=== PATIENT | male | born 1945 ===

== ENCOUNTER 2019-08-27 17:50 | Emergency (ER) | payer MEDICARE ==
[~2019-08-27] VITALS: Ht 180.3 cm; Wt 114.8 kg
== END 2019-08-27 18:22 | disposition home or self-care (01) ==
LOC: ER 17:50
DX: I83.893 Varicose veins of bilateral lower extremities with other complications (principal); Z88.0 Allergy status to penicillin
CPT/HCPCS: 99282

== ENCOUNTER 2020-12-23 08:25 | Day surgery (SDC) | payer MEDICARE, OTHER ==
[~2020-12-23] VITALS: Ht 180.3 cm; Wt 108.5 kg
[~2020-12-23 08:25] MED LIST: Aspir 8181 MG PO; FLONASE ALLERG9.9 M2; GLIP5 PO; LEVOTHYROXINE200 MCG PO; LOSARTAN POTASS50 M1 PO; METF500 PO
[2020-12-23] MEDS ORDERED: SIMV80 (08:43)
--- NOTE | 2020-12-23 10:42 | NUR ---
12/23/20 1042 Tanja Wynn LATE ENTRY---IT WAS ENTERED IN THE MEDS/FLUIDS SCREEN THAT THE IV WAS IN THE RIGHT HAND WHICH WAS INCORRECT---THE IV WAS IN THE RIGHT FOREARM
== END 2020-12-23 10:30 | disposition home or self-care (01) ==
LOC: ORSCSDS 08:25
PROVIDERS: Internal Medicine Gastroenterology
PROC: 0DBL8ZX Excision of Transverse Colon, Via Natural or Artificial Opening Endoscopic, Diagnostic (ICD-10-PCS; principal; 2020-12-23 09:45)
DX: Z12.11 Encounter for screening for malignant neoplasm of colon (principal); Z86.010 Personal history of colon polyps; D12.3 Benign neoplasm of transverse colon; K57.30 Diverticulosis of large intestine without perforation or abscess without bleeding; K64.8 Other hemorrhoids; E11.9 Type 2 diabetes mellitus without complications; E03.9 Hypothyroidism, unspecified; I10 Essential (primary) hypertension; E78.5 Hyperlipidemia, unspecified; J45.909 Unspecified asthma, uncomplicated; G47.33 Obstructive sleep apnea (adult) (pediatric); Z79.82 Long term (current) use of aspirin; Z79.899 Other long term (current) drug therapy
CPT/HCPCS: 82947; 88305; J2704; J7120

== ENCOUNTER → 2024-03-15 | Outpatient (CLI) | payer MEDICARE, OTHER ==
[~2024-03-15] MED LIST changes: +ZOCOR PO
[2024-03-15 15:06] LABS: BASOPHILS ABSOLUTE AUTO 0.06 K/mm3 (0.00-0.23); BASOPHILS PERCENT AUTO 1 % (0-2); EOSINOPHILS PERCENT AUTO 5 % (0-6); Hematocrit 38.8 % (37.0-53.0); Hemoglobin 13.7 g/dL (13.5-17.5); IMMATURE GRAN ABSOLUTE AUTO 0.03 K/mm3 (0.00-0.10); IMMATURE GRAN PERCENT AUTO 0 % (0-1); LYMPHOCYTES PERCENT AUTO 16 % (21-46); MONOCYTES ABSOLUTE AUTO 0.59 K/mm3 (0.16-1.47); MONOCYTES PERCENT AUTO 7 % (4-13); Mean Corpuscular HGB 29.7 pg (26.0-34.0); Mean Corpuscular HGB Conc 35.3 g/dL (31.5-36.5); Mean Corpuscular Volume 84 fL (80-100); Mean Platelet Volume 9.6 fL (9.1-12.4); NEUTROPHILS ABSOLUTE AUTO 6.19 K/mm3 (1.96-9.15); NEUTROPHILS PERCENT AUTO 72 % (41-73); Platelet Count 257 K/mm3 (150-400); RDW Coefficient Variation 11.9 % (11.7-14.2); Red Blood Cell Count 4.61 M/mm3 (4.30-5.90); White Blood Cell Count 8.67 K/mm3 (4.00-11.30)
[2024-03-15 15:15] LABS: Albumin, Blood 3.8 g/dL (3.4-5.0); Bilirubin, Total 0.8 mg/dL (0.1-1.0); Bun/Creatinine Ratio 12.6 (12.0-20.0); Calcium, Blood 8.6 mg/dL (8.5-10.1); Creatinine, Blood 1.99 mg/dL (0.60-1.20); Globulin, Blood 3.7 g/dL (2.2-4.0); Potassium, Blood 4.4 mmol/L (3.5-5.5); Total Protein, Blood 7.5 g/dL (6.4-8.2)
== END | disposition home or self-care (01) ==
LOC: LAB 15:01 → LAB SHORT 15:01
PROVIDERS: Internal Medicine
DX: I95.9 Hypotension, unspecified (principal)
CPT/HCPCS: 80053; 85025

== ENCOUNTER → 2024-04-25 | Outpatient (CLI) | payer MEDICARE, OTHER ==
[2024-04-25 12:34] LABS: BASOPHILS ABSOLUTE AUTO 0.07 K/mm3 (0.00-0.23); BASOPHILS PERCENT AUTO 1 % (0-2); EOSINOPHILS ABSOLUTE AUTO 0.42 K/mm3 (0.00-0.68); EOSINOPHILS PERCENT AUTO 6 % (0-6); Hematocrit 40.8 % (37.0-53.0); Hemoglobin 14.6 g/dL (13.5-17.5); IMMATURE GRAN ABSOLUTE AUTO 0.03 K/mm3 (0.00-0.10); IMMATURE GRAN PERCENT AUTO 0 % (0-1); LYMPHOCYTES ABSOLUTE AUTO 1.71 K/mm3 (0.84-5.20); LYMPHOCYTES PERCENT AUTO 23 % (21-46); MONOCYTES ABSOLUTE AUTO 0.44 K/mm3 (0.16-1.47); MONOCYTES PERCENT AUTO 6 % (4-13); Mean Corpuscular HGB 29.6 pg (26.0-34.0); Mean Corpuscular HGB Conc 35.8 g/dL (31.5-36.5); Mean Corpuscular Volume 83 fL (80-100); Mean Platelet Volume 9.5 fL (9.1-12.4); NEUTROPHILS ABSOLUTE AUTO 4.84 K/mm3 (1.96-9.15); NEUTROPHILS PERCENT AUTO 64 % (41-73); Platelet Count 251 K/mm3 (150-400); RDW Coefficient Variation 12.1 % (11.7-14.2); RDW Standard Deviation 36.5 fL (35.1-46.3); Red Blood Cell Count 4.93 M/mm3 (4.30-5.90); White Blood Cell Count 7.51 K/mm3 (4.00-11.30)
[2024-04-25 12:48] LABS: Albumin, Blood 3.6 g/dL (3.4-5.0); Albumin/Globulin Ratio 0.9 (0.8-1.8); Bilirubin, Total 0.6 mg/dL (0.1-1.0); Bun/Creatinine Ratio 13.4 (12.0-20.0); Calcium, Blood 9.1 mg/dL (8.5-10.1); Creatinine, Blood 1.57 mg/dL (0.60-1.20); Globulin, Blood 3.9 g/dL (2.2-4.0); Potassium, Blood 4.3 mmol/L (3.5-5.5); Total Protein, Blood 7.5 g/dL (6.4-8.2)
== END | disposition home or self-care (01) ==
LOC: LAB SHORT 12:30 → LAB 12:30
PROVIDERS: Chiropractor
DX: R42 Dizziness and giddiness (principal); R93.1 Abnormal findings on diagnostic imaging of heart and coronary circulation
CPT/HCPCS: 80053; 84484; 85025

== ENCOUNTER 2024-05-22 06:54 | Day surgery (SDC) | payer MEDICARE, OTHER ==
[2024-05-22] VITALS (10 sets, daily range): BP systolic 126–162; BP diastolic 49–126
[~2024-05-22] VITALS: Ht 180.3 cm; Wt 107.0 kg
[2024-05-22] MEDS ORDERED: GABA100 PO (07:54)
[2024-05-22] MEDS ORDERED: Isosorbide Mono30 MG PO (07:54)
[2024-05-22] MEDS ORDERED: METO25ER PO (07:54)
[2024-05-22] MEDS ORDERED: VALS80 PO (07:55)
[2024-05-22] MEDS ORDERED: ZOCOR20 MG PO (07:55)
[2024-05-22] MEDS ORDERED: Heparin Sodium 1000 Units/ML 10ML MDV ONE ×2 (09:54→10:52)
[2024-05-22] MEDS ORDERED: NS 1,000 ML IV ONE ×2 (09:54→09:59)
[2024-05-22] MEDS ORDERED: NS 250 ML IV ONE (09:54)
[2024-05-22] MEDS ORDERED: Verapamil HCL 2.5 MG/ML 2ML Injection ONE (09:54)
[2024-05-22] MEDS ORDERED: Nitroglycerin 2 MG/20 ML BTL ONE (09:54)
[2024-05-22] MEDS ORDERED: Midazolam HCl 1MG / ML 2ML Vial ONE (09:59)
[2024-05-22] MEDS ORDERED: FentaNYL Citrate 50 MCG/ML 2 ML Injection ONE (09:59)
--- NOTE | 2024-05-22 12:32 | NUR ---
2cc removed from tr band. site soft and non-tender per pt. no bleeding noted.
--- NOTE | 2024-05-22 12:43 | NUR ---
2CC REMOVED FROM TR BAND. SITE SOFT AND NON-TENDER PER PT. NO BLEEDING NOTED. PT FINISHED W/ FOOD. PT SITTING UP READING BOOK.
--- NOTE | 2024-05-22 12:52 | NUR ---
2CC REMOVED FROM TR BAND. SITE SOFT AND NON-TENEDER PER PT. NO BLEEDING NOTED.
--- NOTE | 2024-05-22 12:59 | NUR ---
TR BAND FULLY DEFLATED. SITE SOFT AND NON-TENDER PER PT. NO BLEEDING NOTED.
--- NOTE | 2024-05-22 13:17 | NUR ---
RADIAL SITE SOFT AND NON-TENDER PER PT. NO BLEEDING NOTED.
--- NOTE | 2024-05-22 14:06 | NUR ---
PT GIVEN D/C INSTRUCTIONS AND VERBALIZED UNDERSTADNING. IV OUT. RADIAL SITE SOFT AND NON-TENDER PER PT. NO BLEEDING NOTED. CLOTH DOT, ARM BOARD, AND SLING APPLIED. PT CHANGED AND AMBULATED TO [facility]. PT TAKEN TO [facility] VIA . , RASHEL, TO TAKE PT HOME.
== END 2024-05-22 14:10 | disposition home or self-care (01) ==
LOC: MHTC 06:54
DX: I25.10 Atherosclerotic heart disease of native coronary artery without angina pectoris (principal); E78.5 Hyperlipidemia, unspecified; R06.09 Other forms of dyspnea; R53.1 Weakness; R53.83 Other fatigue; R42 Dizziness and giddiness; I12.9 Hypertensive chronic kidney disease with stage 1 through stage 4 chronic kidney disease, or unspecified chronic kidney disease; E11.22 Type 2 diabetes mellitus with diabetic chronic kidney disease; N18.32 Chronic kidney disease, stage 3b; E03.9 Hypothyroidism, unspecified; Z88.0 Allergy status to penicillin; Z79.82 Long term (current) use of aspirin; Z79.899 Other long term (current) drug therapy
CPT/HCPCS: 76937; 85347; 93454; 93571; 99152; 99153; C1769; C1887; C1894; J1644; J2250; J3010; J7030; J7050; Q9967

== ENCOUNTER 2024-08-16 11:46 | Day surgery (SDC) | payer MEDICARE, OTHER ==
[2024-08-16] VITALS (15 sets, daily range): BP systolic 107–158; BP diastolic 59–87
[~2024-08-16] VITALS: Ht 180.3 cm; Wt 103.5 kg
[~2024-08-16 11:46] MED LIST changes: +ATOR40TA PO; +GABA100 PO; +Isosorbide Mono30 MG PO; +METO25ER PO; +NITR.4SL SL; +VALS80 PO; +ZOCOR20 MG PO
[2024-08-16] MEDS ORDERED: Indocyanine Green 25 MG Vial IV ONE (12:40)
[2024-08-16] MEDS ORDERED: Lactated Ringer's 1,000 ML IV SCH (12:40)
[2024-08-16] MEDS ORDERED: propofoL 20 ML IV ONE (12:48)
[2024-08-16] MEDS ORDERED: FentaNYL Citrate 50 MCG/ML 2 ML Injection ONE (12:48)
[2024-08-16] MEDS ORDERED: Ondansetron HCl 2 MG / ML 2ML Vial ONE (12:49)
[2024-08-16] MEDS ORDERED: Rocuronium Bromide 10 MG/ML 5ML Injection IV ONE ×5 (12:49→19:51)
[2024-08-16] MEDS ORDERED: Dexamethasone Sod Phos 10 MG/ML 1ML VIAL ONE (12:49)
--- NOTE | 2024-08-16 13:02 | NUR ---
PT TO DAY SURGERY AMBULATORY. PT REPORTS "FALLING OFF LADDER" 2 [address] A[address] WILL INFORM [address] SANDERS AND DR OWENS. FALL CAUSED BACK PAIN BUT PT IS STILL AMBULATORY. History, Chart, Medications and Allergies reviewed before start of procedure. Patient States Post-Procedure ride home has been arranged WITH [facility]. BELONGINGS PLACED UNDER GURN. AT BEDSIDE. WILL CONTINUE TO MONITOR.
[2024-08-16] MEDS ORDERED: Bupivacaine 0.5% HCl 5 MG/ML 30MLVIAL ONE (14:14)
[2024-08-16] MEDS ORDERED: Sugammadex Sodium 200 MG/2ML SDV (100 MG/ML) ONE (14:56)
--- NOTE | 2024-08-16 16:14 | NUR ---
08/16/24 1614 Liane Lawler NO INTRAOPERATIVE ANTIBIOTICS ORDERED.
[2024-08-16] MEDS ORDERED: Dexmedetomidine HCL 200 MCG / 2 ML ONE (16:53)
[2024-08-16] MEDS ORDERED: Midazolam HCl 1MG / ML 2ML Vial ONE (17:32)
[2024-08-16] MEDS ORDERED: HYDROcodone 5-APAP 325 TAB PO PRN (17:55)
--- NOTE | 2024-08-16 18:28 | NUR ---
PT DISCHARGED HOME, DENIED ABD PAIN. RECEIVED 1 PAIN PILL FOR BACK PAIN. INCISIONS X4 REMAIN CDI. ALL BELONINGINGS RETURNED TO PATIENT. VSS. DISCHARGE INSTRUCTIONS PROVIDED. UP TO AMBULATE WITH STEADY GAIT. D/C VIA WHEELCHAIR.
[2024-08-16] MEDS ORDERED: Ketorolac Tromethamine 30mg Vial ONE (20:29)
== END 2024-08-16 23:00 | disposition home or self-care (01) ==
LOC: ORSCMMR 11:46 → ORD 13:30 → ORSCMMR 13:30
PROVIDERS: Surgery
PROC: 0FT44ZZ Resection of Gallbladder, Percutaneous Endoscopic Approach (ICD-10-PCS; principal; 2024-08-16 13:30)
PROC: BF532Z0 Other Imaging of Gallbladder and Bile Ducts using Fluorescing Agent, Intraoperative (ICD-10-PCS; principal; 2024-08-16 13:30)
DX: K80.11 Calculus of gallbladder with chronic cholecystitis with obstruction (principal); E78.5 Hyperlipidemia, unspecified; I10 Essential (primary) hypertension; E03.9 Hypothyroidism, unspecified; E11.9 Type 2 diabetes mellitus without complications; I25.10 Atherosclerotic heart disease of native coronary artery without angina pectoris; E66.9 Obesity, unspecified; Z68.31 Body mass index [BMI] 31.0-31.9, adult; Z79.82 Long term (current) use of aspirin; Z79.84 Long term (current) use of oral hypoglycemic drugs; Z79.899 Other long term (current) drug therapy
CPT/HCPCS: 82947; 88304; A9270; J1100; J1885; J2250; J2405; J2704; J3010; J7120